=== PATIENT | female | born 1950 | race American Indian/Alaskan Native ===

== ENCOUNTER 2018-05-20 07:16 | Day surgery (SDC) | payer MEDICARE ==
[~2018-05-20 07:16] MED LIST: ANCEF/STERILE WATER 2 GM/20 ML 2 GM/20 ML SYRINGE IV NR; NACL 0.9% 1000 ML 1,000 ML IV SCH
[2018-05-20] MEDS ORDERED: DILAUDID IV PRN (09:52)
[2018-05-20] MEDS ORDERED: ZOFRAN IV PRN (09:52)
[2018-05-20] MEDS ORDERED: VERSED IV NR (10:00)
[2018-05-20] MEDS ORDERED: NACL 0.9% 1000 ML 1,000 ML IV SCH ×2 (10:00→11:00)
[2018-05-20 10:11] LABS: Hemoglobin 13.2 gm/dl (10.1-14.3); Platelet Count 183 K/mm3 (140-440)
--- NOTE | 2018-05-20 10:13 | Anesthesia Consultation ---
Anesthesia Consult and Med Hx Date of service: 05/20/18 - Airway Anesthetic Teeth Evaluation: Edentulous ROM Head & Neck: Adequate Mental/Hyoid Distance: Inadequate Mallampati Class: Class III Intubation Access Assessment: Probably Good - Pulmonary Exam CTA: Yes - Cardiac Exam Cardiac Exam: RRR - Pre-Operative Health Status ASA Pre-Surgery Classification: ASA4 Proposed Anesthetic Plan: General - Pre-Anesthesia Comment Pre-Anesthesia Comments: 67y F with h/o CAD s/p stents (2006), HTN, ESRD (MWF HD ), HOA on CPAP, SLE, hypothyroidism, B mastectomy s/p chemo, who presents for chest wall AVG for HD; currently utilizing temp vasc acces cath. - Pulmonary Hx Smoking: No Hx Asthma: Yes (no recent exacerbations) Hx Sleep Apnea: Yes (CPAP) - Cardiovascular System Hx Hypertension: Yes Hx Coronary Artery Disease: Yes (s/p stents) - Central Nervous System Hx Seizures: No CVA: No Hx Psychiatric Problems: No - Endocrine Hx End Stage Renal Disease: Yes (MWF HD) Hx Liver Disease: No Hx Hypothyroidism: Yes - Other Systems Hx Cancer: Yes - Additional Comments Anesthesia Medical History Comments: no h/o anes complications
[2018-05-20 10:15] LABS: Basophils # (Auto) 0.1 K/mm3 (0.0-0.1); Eosinophils % (Auto) 1.1 % (0.0-4.3); Hematocrit 40.4 % (30.3-42.9); Lymphocytes % (Auto) 27.2 % (13.4-35.0); Mean Corpuscular HGB Conc 33 % (30-34); Mean Corpuscular Hemoglobin 30 pg (28-32); Mean Corpuscular Volume 91 fl (79-97); Monocytes % (Auto) 11.8 % (0.0-7.3); Red Blood Count 4.47 M/mm3 (3.65-5.03); Red Cell Distribution Width 17.5 % (13.2-15.2)
[2018-05-20 10:16] LABS: Basophils % (Auto) 1.2 % (0.0-1.8); Eosinophils # (Auto) 0.1 K/mm3 (0.0-0.4); Lymphocytes # (Auto) 1.7 K/mm3 (1.2-5.4); Monocytes # (Auto) 0.8 K/mm3 (0.0-0.8)
[2018-05-20 10:19] LABS: Calcium 9.2 mg/dL (8.4-10.2)
--- NOTE | 2018-05-20 10:28 | Anesthesia Day of Surgery ---
Anesthesia Day of Surgery - Day of Surgery Patient Examined: Yes Patient H&P Reviewed: Yes Patient is NPO: Yes Beta Blockers: No Cardiac Clearance: Yes Pulmonary Clearance: Yes Eben's Test: N/A
[2018-05-20] MEDS ORDERED: DIPRIVAN 10 MG/ML IV ONE (11:48)
[2018-05-20] MEDS ORDERED: SUBLIMAZE ONE (11:48)
[2018-05-20] MEDS ORDERED: XYLOCAINE MPF 2% ONE (11:48)
[2018-05-20] MEDS ORDERED: MARCAINE 0.5% 30 ML INFILTRATI ONE (11:50)
[2018-05-20] MEDS ORDERED: HEPARIN 10,000 UNITS/10 ML ONE (11:50)
[2018-05-20] MEDS ORDERED: PROTAMINE SULFATE ONE (11:50)
[2018-05-20] MEDS ORDERED: NACL P/F VIAL (10 ML) 0 ML ONE (11:50)
[2018-05-20] MEDS ORDERED: RIFADIN ONE (11:50)
[2018-05-20] MEDS ORDERED: NACL 0.9% 500 ML 500 ML ONE (11:51)
[2018-05-20] MEDS ORDERED: ePHEDrine 50 MG/5 ML-0.9% NACL IV ONE (12:08)
[2018-05-20] MEDS ORDERED: ZOFRAN ONE ×2 (12:08→16:57)
[2018-05-20] MEDS ORDERED: ZEMURON IV ONE (12:08)
[2018-05-20] MEDS ORDERED: NACL 0.9% 250ML 250 ML ONE (14:58)
[2018-05-20] MEDS ORDERED: MARCAINE 0.5% INFILTRATI ONE ×2 (15:24)
[2018-05-20] MEDS ORDERED: NACL 0.9% IR ONE ×2 (15:24→15:25)
[2018-05-20] MEDS ORDERED: HEPARIN 10,000 UNITS/10 ML 2,000 UNIT in NACL 0.9% 500 ML 500 ML IR ONE (15:25)
[2018-05-20] MEDS ORDERED: OMNIPAQUE IR ONE (15:25)
[2018-05-20] MEDS ORDERED: OMNIPAQUE (300 MG) 50 ML in NACL 0.9% 50 ML IR ONE (15:25)
[2018-05-20] MEDS ORDERED: DECADRON ONE (16:57)
[2018-05-20] MEDS ORDERED: BLOXIVERZ ONE (17:46)
[2018-05-20] MEDS ORDERED: ROBINUL ONE (17:46)
--- NOTE | 2018-05-20 17:55 | Short Stay Summary ---
Short Stay Documentation Date of service: 05/20/18 Narrative H&P: See H&P - History H&P: obtained from office - Allergies and Medications Current Medications: Allergies No Known Allergies Allergy (Verified 05/16/18 22:19) Home Medications Medication Instructions Recorded Confirmed Last Taken Type Allopurinol 100 mg PO DAILY 05/20/18 05/20/18 05/19/18 09:00 History Anastrozole (Nf) 1 mg PO DAILY 05/20/18 05/20/18 05/19/18 09:00 History Aspirin 81 mg PO DAILY 05/20/18 05/20/18 05/19/18 09:00 History Carvedilol 12.5 mg PO BID 05/20/18 05/20/18 05/20/18 10:49 History Gabapentin 300 mg PO Q12HR 05/20/18 05/20/18 05/19/18 18:00 History Hydroxychloroquine 200 mg PO BID 05/20/18 05/20/18 05/19/18 15:00 History Isosorbide Mononitrate 30 mg PO DAILY 05/20/18 05/20/18 05/19/18 09:00 History Lasix 60 mg PO BID 05/20/18 05/20/18 05/19/18 15:00 History Levothyroxine 0.05 mcg PO DAILY 05/20/18 05/20/18 05/19/18 09:00 History Meclizine 12.5 mg PO TID 05/20/18 05/20/18 05/19/18 09:00 History Nifedipine ER 90 mg PO DAILY 05/20/18 05/20/18 05/19/18 09:00 History Renvela 800 mg PO AC 05/20/18 05/20/18 05/19/18 18:00 History Venlafaxine 37.5 mg PO DAILY 05/20/18 05/20/18 05/19/18 09:00 History Active Medications Hydromorphone HCl (Dilaudid) 0.25 mg IV Q10MIN PRN PRN Reason: Pain, Moderate (4-6) Stop: 05/20/18 18:00 Cefazolin Sodium (Ancef/Sterile Water 2 Gm/20 Ml) 2 gm in 20 mls @ 80 mls/hr IV PREOP NR; Protocol Stop: 05/20/18 23:59 Sodium Chloride (Nacl 0.9% 1000 Ml) 1,000 mls @ 42 mls/hr IV DIRECT MARIAM Sodium Chloride (Nacl 0.9% 1000 Ml) 1,000 mls @ 42 mls/hr IV DIRECT MARIAM Sodium Chloride (Nacl 0.9% 1000 Ml) 1,000 mls @ 42 mls/hr IV DIRECT MARIAM Midazolam HCl (Versed) 2 mg IV PREOP NR Stop: 05/20/18 23:59 Ondansetron HCl (Zofran) 4 mg IV ONCE PRN PRN Reason: Nausea And Vomiting - Brief post op/procedure progress note Date of procedure: 05/20/18 Pre-op diagnosis: End-Stage Renal Disease And Bilateral lymphedema with history of breast can Post-op diagnosis: same Procedure: 1. Removal of Right Chest Subcutaneous Port and Right Internal Jugular Catheter 2. Right Upper Extremity Venogram 3. Angioplasty of Right Subclavian Vein With 10 x 4 Balloon 4. Creation of Right Subclavian Artery to Right Subclavian Vein Arteriovenous Graft with 6 mm x 9 mm x 10 cm Viabahn Hybrid Graft Anesthesia: GETA Surgeon: CAYETANO ALLEN Estimated blood loss: other (400 ml) Pathology: list (Right chest subcutaneous port and catheter) Specimen disposition: to lab Condition: stable - Disposition Condition at discharge: Good Disposition: [id number] TO HOME OR SELFCARE Short Stay Discharge Plan Activity: other (no heavy lifting ) Wound: open to air, keep clean and dry, other (okay to wash the wound with soap and water but do not soak in water) Follow up with: CAYETANO ALLEN MD [Staff Physician] - 14 Days Prescriptions: HYDROcodone/APAP 7.5-325 [[place] 7.5/325] 1 each PO Q6HR PRN #40 tablet PRN Reason: Pain
--- NOTE | 2018-05-20 18:01 | Operative Report ---
Operative Report Operative Report: Date of Procedure: 05/20/2018 Pre-operative Diagnosis: Indwelling Right Chest Subcutaneous Port and Chronic Renal Insufficiency Post-operative Diagnosis: Same Procedure(s): 1. Removal of Right Chest Subcutaneous Port and Right Internal Jugular Catheter 2. Right Upper Extremity Venogram 3. Angioplasty of Right Subclavian Vein With 10 x 4 Balloon 4. Creation of Right Subclavian Artery to Right Subclavian Vein Arteriovenous Graft with 6 mm x 9 mm x 10 cm Viabahn Hybrid Graft 5. Radiologic Supervision with Interpretation Surgeon: Alireza Muñiz M.D. Guidance Secretary: Chaitanya Monteiro PA-C Anesthesia: Gen. Endotracheal Anesthesia EBL: 200 mL Counts: Correct Complications: None Condition: Stable Findings: Successful creation of right chest AV graft with palpable thrill at the completion of the case. Specimen: Right chest subcutaneous port with right internal jugular catheter sent to pathology. Indication: The patient is a 67-year-old female with a history of bilateral breast cancer who had bilateral mastectomies and required chemotherapy. She has an indwelling subcutaneous port requires removal. Additionally she has chronic renal sufficiency and is not yet on hemodialysis but requires hemodialysis in the near future. She has bilateral upper extremity lymphedema that makes dialysis access creation in her upper extremities difficult. Additionally creation of lower extremity access will be difficult given her pannus. Creation of an AV access in her chest is the best anatomic area for access at this time. The patient was given the risk, benefits, and alternative procedures and has consented to the procedure. Description of Procedure: The patient was brought to the operating room and laid in supine position. After general endotracheal anesthesia was achieved a bump was placed under the patient's shoulder and then her right neck and chest were prepped and draped in normal sterile fashion. A longitudinal incision was created approximately 2 fingerbreadths under her right clavicle and extended from her sternum medially and extended laterally to include her previous incision for her port placement. The dissection carried out to her port and the subcutaneous portion of her port as well as the sac was excised sharply and the port as well as the catheter were removed in whole was confirmed by fluoroscopy. This was passed off as a specimen and sent to pathology. The dissection was carried out through the prepectoral fascia and then the pectoralis major was then sharply excised and carried down to the subclavian vein which was sharply dissected circumferentially and controlled with a vessel loop. The subclavian artery was then identified and dissected circumferentially controlled with a vessel loop. The patient was then systemically heparinized and then a micropuncture needle was used to access the subclavian vein and a 0.018 wire was advanced through the needle and into the subclavian vein. The micropuncture puncture sheath was advanced over the wire and the dilator and wire were removed. A 0.035 Bentson wire was advanced through the sheath however there was difficulty advancing the wire through a stenosis in the subclavian vein. I advanced a 0.035 J-wire into the subclavian vein and then advanced a 6 Cymro sheath into the subclavian vein by Seldinger technique. 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 With the use of a vertebral catheter I was able to advance the wire through the stenosis and into the inferior vena cava. I then exchanged the wire for a 0.035 Amplatz wire. I then removed the 6 Cymro sheath and advanced the 14 Cymro peel-away sheath into the subclavian vein. I advanced the 6 mm x 9 mm x 10 cm Viabahn Hybrid Graft into the pull-away sheath with the distal tip past the area of stenosis in the subclavian vein. I peeled away the safety sheath and then deployed the stent graft. I postdilated the Viabahn portion of the hybrid graft with a 10 x 4 balloon and performed a venogram that demonstrated a widely patent subclavian vein with less than 5% residual stenosis. I then clamped the graft and use a 6- 0 Prolene to tack the graft to the subclavian vein. I made a counterincision in the mid chest and then used the Sarah-Wick tunneler to tunnel the graft medially towards the counterincision then used the Sarah-Wick tunneler to tunnel the graft again and a curvilinear fashion back towards the subclavian artery ensuring that it laid any more horizontal fashion so that it did not kink with closure. I then cut the graft to length and beveled the end of the graft. I clamped the subclavian artery both proximally and distally with angled DeBakey clamps and created an arteriotomy using an 11 blade and Eldridge scissors. I created an end to side anastomosis using 2 6-0 Prolene in running fashion. Prior to completing the anastomosis I flashed the artery both proximally and distally and then flushed the arteriotomy using heparinized saline. I then completed the closure and released all clamps allowing flow into the graft without a palpable thrill. Hemostasis within the wound was achieved with a combination of quick clot and FloSeal. Once hemostasis was achieved the wounds were anesthetized with 0.5% Marcaine. The wounds were then closed in 3 layers using a 3-0 Vicryl running fashion to reapproximate the fascia, 3-0 Vicryl running fashion the deep dermal layer, and then 4-0 Monocryl in running fashion subcuticular. The skin was then dressed with Dermabond. The patient tolerated the procedure well. All sponge, needle, isthmic counts were correct. The patient was taken to the recovery area in stable condition.
[2018-05-20] MEDS ORDERED: NORCO 7.5/325 PO PRN (18:09)
[2018-05-20] MEDS ORDERED: ANCEF ONE (18:21)
[2018-05-20] MEDS ORDERED: HEPARIN ONE (18:48)
[2018-05-20] MEDS ORDERED: FLUSH HEPARIN IV ONE (19:00)
[2018-05-20 22:49] VITALS: BP 119/53
== END 2018-05-20 20:10 | disposition home or self-care (01) ==
LOC: OR 07:16
PROVIDERS: ATTEND Surgery Vascular Surgery
DX: I12.0 Hypertensive chronic kidney disease with stage 5 chronic kidney disease or end stage renal disease (principal); N18.6 End stage renal disease; K21.9 Gastro-esophageal reflux disease without esophagitis; G43.909 Migraine, unspecified, not intractable, without status migrainosus; G47.33 Obstructive sleep apnea (adult) (pediatric); J45.909 Unspecified asthma, uncomplicated; E03.9 Hypothyroidism, unspecified; M32.9 Systemic lupus erythematosus, unspecified; I25.10 Atherosclerotic heart disease of native coronary artery without angina pectoris; Z99.89 Dependence on other enabling machines and devices; Z99.2 Dependence on renal dialysis; Z95.5 Presence of coronary angioplasty implant and graft; Z85.3 Personal history of malignant neoplasm of breast; Z98.891 History of uterine scar from previous surgery; Z90.11 Acquired absence of right breast and nipple; Z90.12 Acquired absence of left breast and nipple; Z98.890 Other specified postprocedural states; Z92.21 Personal history of antineoplastic chemotherapy
CPT/HCPCS: 36415; 36590; 36830; 75820; 80048; 85025; 88302; 88305; 93005; 93010; C1725; C1768; C1769; C1894; J0690; J1100; J1644; J2405; J2704; J2710; J3010; J3246; J7030; J7040; J7050; Q9966; J2720; J3490